=== PATIENT | female | born 1970 | race Asian ===

== ENCOUNTER 2017-12-15 09:24 | Emergency (ER) | payer OTHER ==
[2017-12-15 09:32] VITALS: BP 99/64
--- NOTE | 2017-12-15 09:55 | UC ---
Hand/Wrist HPI - HPI Summary HPI Summary: 47 yo female presents with RIGHT wrist pain for 2 days. She tells me that 2 days ago she was doing laundry and dropped the laundry basket. When doing this, her right wrist twisted in an awkward motion. She has had pain with flexion and extension since that time. Has not taken anything OTC for her discomfort. Denies numbness or tingling. - History Of Current Complaint Chief Complaint: UCUpperExtremity Stated Complaint: WRIST INJURY Time Seen by Provider: 12/15/17 09:54 Hx Obtained From: Patient Hx Last Menstrual Period: 12/02/17 Onset/Duration: Sudden Onset Severity Initially: Severe Severity Currently: Severe Pain Intensity: 8 Pain Scale Used: 0-10 Numeric - Allergies/Home Medications Allergies/Adverse Reactions: Allergies Allergy/AdvReac Type Severity Reaction Status Date / Time No Known Allergies Allergy Verified 12/15/17 09:32 Home Medications: Home Medications Cholecalciferol (Vitamin D3) [Vitamin D3] 2,000 units PO DAILY 12/15/17 [ History Confirmed 12/15/17] PMH/Surg Hx/FS Hx/Imm Hx - Additional Past Medical History Additional PMH: None - Surgical History Surgical History: Yes Surgery Procedure, Year, and Place: [facility] - Family History Known Family History: Positive: None - Social History Occupation: Employed Full-time Lives: With Family Alcohol Use: None Substance Use Type: None Smoking Status (MU): Never Smoked Tobacco Review of Systems Constitutional: Negative Skin: Negative Respiratory: Negative Cardiovascular: Negative Gastrointestinal: Negative Neurovascular: Negative Musculoskeletal: Other: - Right wrist pain Neurological: Negative Psychological: Negative All Other Systems Reviewed And Are Negative: Yes Physical Exam - Summary Physical Exam Summary: GENERAL: NAD. WDWN. No pain distress. SKIN: No rashes, sores, lesions, or open wounds. CHEST: No accessory muscle use. Breathing comfortably and in no distress. CV: Pulses intact radial and ulnar. Cap refill <2seconds MSK: RIGHT WRIST: NTTP. FROM with mild pain during flexion and extension. Strength 5/5 including custom van converter strength. No edema or obvious bony deformities. No snuffbox tenderness. NEURO: Alert. Sensations intact hand and all fingers. PSYCH: Age appropriate behavior. Triage Information Reviewed: Yes Vital Signs: Initial Vital Signs Temp 98.1 F 12/15/17 09:26 Pulse 71 11/06/18 09:26 Resp 16 12/15/17 09:26 BP 99/64 12/15/17 09:26 Pulse Ox 100 12/15/17 09:26 Vital Signs Reviewed: Yes Hand/Wrist Course/Dx - Course Course Of Treatment: XR: IMPRESSION: NO ACUTE OSSEOUS INJURY. IF SYMPTOMS PERSIST, RECOMMEND REPEAT IMAGING. Suspect wrist strain. Advised to RICE, take ibuprofen, and use the cock-up splint. If her symptoms worsen or persist - f/u with Orthopedics. - Differential Dx/Diagnosis Provider Diagnoses: Right wrist strain Discharge - Sign-Out/Discharge Documenting (check all that apply): Patient Departure All imaging exams completed and their final reports reviewed: Yes - Discharge Plan Condition: Stable Disposition: HOME Patient Education Materials: Wrist Sprain (ED) Referrals: Milvia Kunz MD [Primary Care Provider] - Alberto Valente [Medical Doctor] - If Needed Additional Instructions: If you develop a fever, shortness of breath, chest pain, new or worsening symptoms - please call your PCP or go to the ED. 1) Rest, Ice, and Elevate your wrist as much as possible 2) May take 600mg ibuprofen every 6-8 hours as needed for discomfort 3) If your symptoms worsen or persist, please call Orthopedics at the number below to schedule a follow up appointment - Billing Disposition and Condition Condition: STABLE Disposition: Home
== END 2017-12-15 10:31 | disposition home or self-care (01) ==
LOC: UCEAST 09:24
DX: M25.531 Pain in right wrist (principal); X50.1XXA Overexertion from prolonged static or awkward postures, initial encounter; Y92.9 Unspecified place or not applicable
CPT/HCPCS: 99212; G0463

== ENCOUNTER 2019-03-05 16:03 | Emergency (ER) | payer OTHER ==
[2019-03-05 16:16] VITALS: BP 96/57
--- NOTE | 2019-03-05 16:21 | UC ---
Skin Complaint HPI - HPI Summary HPI Summary: 48 yo female presents with rash. She tells me that yesterday she noticed a red itchy rash to her ankles, lower legs, and hands. She applied bactroban with no relief. She took a benadryl and symptoms improved. Today her rash is back and she applied more bactroban cream with no change. States rash is spreading up her forearms and legs. No change in environment, foods, perfumes, clothings. No recent travel. No tick bites. Denies fever, recent illness, cough, SOB, chest pain, n/v. - History of Current Complaint Chief Complaint: UCRash Time Seen by Provider: 03/05/19 16:20 Stated Complaint: HAND AND ANKLE RASH Hx Obtained From: Patient Hx Last Menstrual Period: 03/05/19 Onset/Duration: Sudden Onset Onset Severity: Severe Current Severity: Severe - itchy Pain Intensity: 10 Pain Scale Used: 0-10 Numeric - Allergy/Home Medications Allergies/Adverse Reactions: Allergies Allergy/AdvReac Type Severity Reaction Status Date / Time No Known Allergies Allergy Verified 03/05/19 16:17 Home Medications: Home Medications Mupirocin 2% CREAM* [Bactroban 2% CREAM*] 1 applic SUBDERMAL DAILY 03/05/19 [ History Confirmed 03/05/19] diphenhydrAMINE HCl [Allergy Medication] 25 mg PO Q6HR 03/05/19 [History Confirmed 03/05/19] PMH/Surg Hx/FS Hx/Imm Hx - Additional Past Medical History Additional PMH: None - Surgical History Surgical History: Yes Surgery Procedure, Year, and Place: [facility] - Family History Known Family History: Positive: None - Social History Alcohol Use: None Substance Use Type: None Smoking Status (MU): Never Smoked Tobacco Review of Systems All Other Systems Reviewed And Are Negative: No Constitutional: Positive: Negative Skin: Positive: Rash Eyes: Positive: Negative ENT: Positive: Negative Respiratory: Positive: Negative Cardiovascular: Positive: Negative Gastrointestinal: Positive: Negative Neurovascular: Positive: Negative Neurological: Positive: Negative Psychological: Positive: Negative Physical Exam - Summary Physical Exam Summary: GENERAL: NAD. WDWN. No distress. SKIN: Scattered mildly erythematous urticaria worse on forearms and thighs. Itchy. No open wounds, streaking, abscess, induration. HEENT: No periorbital, lip, or other facial edema. Airway patent without oropharyngeal edema. NECK: Supple. Nontender. No lymphadenopathy. CHEST: CTAB. No wheezing. No accessory muscle use. Breathing comfortably and in no distress. CV: RRR. Pulses intact. Cap refill <2seconds NEURO: Alert. PSYCH: Age appropriate behavior. Triage Information Reviewed: Yes Vital Signs: Initial Vital Signs Temp 97.7 F 03/05/19 16:10 Pulse 66 03/05/19 16:10 Resp 16 03/05/19 16:10 BP 96/57 03/05/19 16:10 Pulse Ox 99 03/05/19 16:10 Vital Signs Reviewed: Yes Course/Dx - Course Course Of Treatment: Suspect allergic reaction. Will rx for prednisone. Advised to stop using bactroban cream and to start taking daily benadryl. - Diagnoses Provider Diagnosis: Urticaria Discharge ED - Sign-Out/Discharge Documenting (check all that apply): Patient Departure All imaging exams completed and their final reports reviewed: No Studies - Discharge Plan Condition: Stable Disposition: HOME Prescriptions: diPHENhydraMINE 2% CREAM(NF) [Benadryl 2% CREAM (NF)] 1 applic TOPICAL BID #1 tube predniSONE 20 mg TAB [Deltasone 20 MG TAB*] 40 mg PO DAILY #15 tab Patient Education Materials: Urticaria (ED) Referrals: Milvia Kunz MD [Primary Care Provider] - Additional Instructions: - Take prednisone exactly as prescribed until gone - Okay to take Benadryl 25mg every 6 hours as needed for itching and hives. This medication may cause drowsiness - do NOT drive, operate machinery or drink alcohol while taking Benadryl -Avoid getting over-heated (hot showers, hot tubs, exercise) for at least 48 hours - Try to avoid aspirin, NSAIDs (Motrin, Aleve, Naprosyn) for 2-3 days - Okay to apply cool compresses to the area of injury -Contact your doctor or return here with questions or concerns - Billing Disposition and Condition Condition: STABLE Disposition: Home
== END 2019-03-05 16:38 | disposition home or self-care (01) ==
LOC: UCEAST 16:03
DX: L50.9 Urticaria, unspecified (principal)
CPT/HCPCS: 99212; G0463